=== PATIENT | female | born 1970 | race Caucasian/White ===

== ENCOUNTER → 2020-03-22 | Outpatient (CLI) | payer OTHER ==
[2015-03-04 09:15] VITALS: BP 145/62
[~2020-03-22] MED LIST: HEPATITIS MED; LEVO75TA5 PO
--- NOTE | 2020-03-22 11:58 | RAD ---
Examination: 1. Bilateral digital diagnostic mammogram. 2. Limited right breast ultrasound. INDICATION: 49-year-old woman with palpable lump in the right breast for the past week. She also complains of heaviness in the right breast and generalized discomfort. COMPARISON: Bilateral mammogram of 04/06/2014, 04/20/2015, and right digital diagnostic mammogram of 04/22/2014. TECHNIQUE: Bilateral CC and MLO views of both breasts were obtained with 2-D and 3-D technique and reviewed with computer-aided detection. Targeted ultrasound of the area of palpable concern in the right breast was subsequently pursued. FINDINGS: Bilateral mammogram shows scattered fibroglandular densities with no developing mass, suspicious calcifications or architectural distortion. There is no mammographic correlate to the area of reported palpable concern. Targeted ultrasound of the area of concern at the 4 through 6:00 position 2 cm from the right nipple revealed no suspicious sonographic findings or sonographic correlate to the patient's reported area of palpable concern. IMPRESSION: Negative bilateral digital diagnostic mammogram and targeted right breast ultrasound. No evidence of malignancy. Recommend clinical management which may include biopsy if there are any clinically suspicious findings on exam as determined by the patient's referring provider. If there is clinical uncertainty or concern, a surgical referral could be considered. In the absence of any clinically suspicious findings, recommend return to routine screening next due in one year. Discussed with patient. BI-RADS Category 1: Negative. Recommend clinical management and in the absence of any clinically suspicious findings, return to routine screening next due in one year. BI-RADS 1 -- negative findings (within normal)
== END | disposition home or self-care (01) ==
LOC: MAMMO 03-21 14:25
PROVIDERS: ATTEND Nurse Practitioner
DX: R92.8 Other abnormal and inconclusive findings on diagnostic imaging of breast (principal)
CPT/HCPCS: 76641; 77066; G0279; 77062

== ENCOUNTER → 2020-11-24 | Outpatient (CLI) | payer OTHER ==
[2015-03-04 09:15] VITALS: BP 145/62
--- NOTE | 2020-11-24 07:43 | RAD ---
EXAMINATION: US ABDOMEN LTD 11/24/2020 7:08 AM INDICATION: Right upper quadrant pain TECHNIQUE: Garcia scale and color Doppler ultrasound images of the right upper quadrant were obtained. COMPARISON: None. FINDINGS: Liver: The liver is normal in size measuring 16.7 cm in length. Normal hepatic echogenicity. No foc al liver lesion. Gallbladder: The gallbladder is normal in caliber. No cholelithiasis or sludge. The gallbladder wa ll is normal in thickness. Sonographic Posey's sign is negative. Bile ducts: The common bile duct is normal measuring 4 mm. No intrahepatic biliary duct dilatation. Right kidney: The right kidney measures 11.2 x 4.7 x 4.2 cm. Normal cortical thickness and echogenic ity. No hydronephrosis. Other: The IVC is normal where visualized. The pancreas is normal where visualized. No ascites. IMPRESSION: Normal right upper quadrant ultrasound. Electronically signed by: Cynthia Rivera MD (11/24/2020 7:41 AM) [id number]
== END ==
LOC: US 06:53
PROVIDERS: ATTEND Family Medicine
DX: R10.11 Right upper quadrant pain (principal)
CPT/HCPCS: 76705

== ENCOUNTER → 2021-08-29 | Outpatient (CLI) | payer OTHER ==
[2015-03-04 09:15] VITALS: BP 145/62
--- NOTE | 2021-08-29 13:41 | RAD ---
EXAM: Bilateral digital screening mammogram. HISTORY: 51-year-old female presents for screening mammography. TECHNIQUE: Full-field digital craniocaudal and mediolateral oblique images of both breasts are obtain ed for evaluation. Computer aided detection was applied. COMPARISON: 03/22/2020 and 04/20/2015 BREAST PARENCHYMAL DENSITY: Level B - Scattered fibroglandular densities. FINDINGS: There is no new suspicious mass, microcalcification or region of architectural distortion. There is stable areas of asymmetry within both breasts. There are benign calcifications within both b reasts. IMPRESSION: BI-RADS Category 2: Benign finding(s). RECOMMENDATION: Annual mammography is recommended. If your mammogram demonstrates that you have dense breast tissue, which could hide abnormalities, and if you have other risk factors for breast cancer that have been identified, you might benefit from s upplemental screening tests that may be suggested by your ordering physician. Dense breast tissue, i n and of itself, is a relatively common condition. This information is not provided to cause undue c oncern, but rather to raise your awareness and to promote discussion with your physician regarding th e presence of other risk factors, in addition to dense breast tissue. A report of your mammography re sults will be sent to you and your physician. You should contact your physician if you have any ques tions or concerns regarding this report. Mammography is a sensitive method for finding small breast cancers, but it does not detect them all a nd is not a substitute for careful clinical examination. A negative mammogram does not negate a clin ically suspicious finding and should not result in delay in biopsying a clinically suspicious abnorma lity. PQRS compliance statement - Patient information was entered into a reminder system with a target due date for the next mammogram. "Our facility is accredited by the [employer] Mammography [employer]." Electronically signed by: Chio Tate MD (08/29/2021 1:39 PM) [id number]
== END ==
LOC: MAMMO 13:04
PROVIDERS: ATTEND Nurse Practitioner
DX: Z12.31 Encounter for screening mammogram for malignant neoplasm of breast (principal); R92.1 Mammographic calcification found on diagnostic imaging of breast
CPT/HCPCS: 77067